=== PATIENT | female | born 1935 | race Two or more races ===

== ENCOUNTER 2022-08-20 12:34 | Emergency (ER) | payer OTHER ==
[~2022-08-20] VITALS: Ht 154.9 cm; Wt 49.4 kg
[2022-08-20 13:23] VITALS: BP 119/62
--- NOTE | 2022-08-20 13:25 | NUR ---
c/o right knee pain s/p slip and fall. pt states " i just need my wound to be cleaned up".
--- NOTE | 2022-08-20 13:30 | NUR ---
WOUHND CARE DONE BY EMT AT BED SIDE , APPLIED DRESSING AND ANTIBOITIC OINTMENT ASSEPTICALLY .
[2022-08-20] MEDS ORDERED: BACI/NEOM/POLY B OINT PKT 1 UDPKT PACKET TP ONE (14:00)
[2022-08-20] MEDS ORDERED: BACI/NEOM/POLY B OINT PKT 1 UDPKT PACKET ONE (14:02)
--- NOTE | 2022-08-20 14:16 | NUR ---
Patient discharged to home in stable condition. Written and verbal after care instructions given. Patient verbalizes understanding of instruction.
== END 2022-08-20 14:17 | disposition home or self-care (01) ==
LOC: ER 12:46
DX: S81.011A Laceration without foreign body, right knee, initial encounter (principal); Z60.2 Problems related to living alone; W01.0XXA Fall on same level from slipping, tripping and stumbling without subsequent striking against object, initial encounter; Y93.01 Activity, walking, marching and hiking; Y92.89 Other specified places as the place of occurrence of the external cause; Y99.8 Other external cause status
CPT/HCPCS: 99282; 12002; A6403 ×2

== ENCOUNTER 2023-04-18 07:34 | Emergency (ER) | payer OTHER ==
[~2023-04-18] VITALS: Ht 139.7 cm; Wt 35.4 kg
[2023-04-18] MEDS ORDERED: ALBUTEROL FS 2.5 MG/3 ML VIAL.NEB NEB ONE (08:00)
[2023-04-18] MEDS ORDERED: methylPREDNISolone SOD SUCC 125 MG/2ML VIAL IV ONE (08:00)
[2023-04-18] MEDS ORDERED: IPRATROPIUM NEB FS 0.5 MG/2.5 ML AMPUL.NEB NEB ONE (08:00)
[2023-04-18] MEDS ORDERED: methylPREDNISolone SOD SUCC 125 MG/2ML VIAL ONE (08:08)
[2023-04-18] MEDS ORDERED: ALBUTEROL FS 2.5 MG/3 ML VIAL.NEB ONE (08:23)
[2023-04-18] MEDS ORDERED: IPRATROPIUM NEB FS 0.5 MG/2.5 ML AMPUL.NEB ONE (08:23)
[2023-04-18 08:27] LABS: BASOPHILS # (AUTO) 0.1 K/uL (0.0-0.2); BASOPHILS % (AUTO) 0.8 % (0.0-2.0); EOSINOPHILS % (AUTO) 0.1 % (0.0-6.0); HEMATOCRIT 31 % (33-45); HEMOGLOBIN 10.3 g/dL (11.5-14.8); LYMPHOCYTES # (AUTO) 0.7 K/uL (0.8-4.8); MEAN CORPUSCULAR HEMOGLOBIN 32 PG (26.0-33.0); MEAN CORPUSCULAR HGB CONC 33 g/dl (31.0-36.0); MEAN CORPUSCULAR VOLUME 97 fL (82-100); MONOCYTES # (AUTO) 0.5 K/uL (0.1-1.30); MONOCYTES % (AUTO) 6.5 % (2.0-12.0); NEUTROPHILS # (AUTO) 6.8 K/uL (1.8-8.9); NEUTROPHILS % (AUTO) 83.6 % (43.0-81.0); PLATELET COUNT (AUTO) 218 K/uL (150-450); RED BLOOD CELL COUNT(AUTO) 3.18 MIL/uL (4.0-5.2); RED CELL DISTRIBUTION WIDTH 15.9 % (11.5-15.0); WHITE BLOOD COUNT (AUTO) 8.1 K/uL (4.3-11.0)
[2023-04-18 08:28] VITALS: O2SAT 96
[2023-04-18 08:44] VITALS: O2SAT 100
[2023-04-18 08:46] LABS: INR 0.99 (0.91-1.10); PROTHROMBIN TIME 10.5 SECS (9.2-11.1)
[2023-04-18 08:47] LABS: PARTIAL THROMBOPLASTIN TIME 32.5 SEC (24.3-34.3)
[2023-04-18] MEDS ORDERED: ONDANSETRON HCL/PF 4 MG/2 ML VIAL ONE (09:10)
[2023-04-18] MEDS ORDERED: MORPHINE SULFATE INJ 4 MG/ML DISP.SYRIN ONE (09:11)
[2023-04-18 09:29] LABS: CALCIUM, SERUM 9.2 mg/dL (8.5-10.1); CARBON DIOXIDE 25 mmol/L (21-32); CHLORIDE 100 mmol/L (98-107); GLUCOSE 111 mg/dL (74-106); SODIUM SERUM 136 mmol/L (136-145); UREA NITROGEN, BLOOD 23 mg/dL (7-18)
[2023-04-18] MEDS ORDERED: MORPHINE SULFATE INJ 2 MG/ML DISP.SYRIN IV ONE (09:30)
[2023-04-18] MEDS ORDERED: ONDANSETRON HCL/PF - ER 4 MG/2 ML VIAL IV ONE (09:30)
[2023-04-18 09:44] LABS: ALANINE AMINOTRANSFERASE 16 U/L (12-78); ALBUMIN 3.7 g/dL (3.4-5.0); ALKALINE PHOSPHATASE 99 U/L (46-116); ASPARTATE AMINOTRANSFERASE 26 U/L (15-37); BILIRUBIN,DIRECT 0.1 mg/dL (0.0-0.2); BILIRUBIN,TOTAL 0.5 mg/dL (0.2-1.0); NT-PRO BNP 17822 pg/mL (0-125); TOTAL PROTEIN, SERUM 7.4 g/dL (6.4-8.2)
[2023-04-18] MEDS ORDERED: POTASSIUM CHLORIDE 20 MEQ TAB.PRT.SR PO ONE ×2 (09:56→10:00)
[2023-04-18] MEDS ORDERED: FUROSEMIDE 40 MG TABLET ONE (10:57)
[2023-04-18] MEDS ORDERED: FUROSEMIDE 40 MG TABLET PO ONE (11:00)
[2023-04-18 11:22] VITALS: BP 138/98; TEMP 98; O2SAT 91
== END 2023-04-18 11:23 | disposition home or self-care (01) ==
LOC: ER 07:36
DX: J45.901 Unspecified asthma with (acute) exacerbation (principal); I50.9 Heart failure, unspecified; Z20.822 Contact with and (suspected) exposure to COVID-19; Z60.2 Problems related to living alone
CPT/HCPCS: 99285; 96374; 71045; 96375; 87426; 93005; 87804 ×2; 85025; 80048; 80076; 36415; 84484; 85730; 83880; 94640; J2270; J2930; J2405 ×2; C9803

== ENCOUNTER 2023-04-20 12:37 | Inpatient (IN) | payer OTHER ==
[~2023-04-20] VITALS: Ht 132.1 cm; Wt 36.7 kg
[2023-04-20 13:10] LABS: BASOPHILS # (AUTO) 0.1 K/uL (0.0-0.2); BASOPHILS % (AUTO) 0.9 % (0.0-2.0); EOSINOPHILS % (AUTO) 0.3 % (0.0-6.0); HEMATOCRIT 28 % (33-45); HEMOGLOBIN 9.4 g/dL (11.5-14.8); LYMPHOCYTES # (AUTO) 1.1 K/uL (0.8-4.8); LYMPHOCYTES % (AUTO) 13.6 % (20.0-44.0); MEAN CORPUSCULAR HEMOGLOBIN 33 PG (26.0-33.0); MEAN CORPUSCULAR HGB CONC 34 g/dl (31.0-36.0); MEAN CORPUSCULAR VOLUME 95 fL (82-100); MONOCYTES # (AUTO) 0.8 K/uL (0.1-1.30); MONOCYTES % (AUTO) 9.9 % (2.0-12.0); NEUTROPHILS # (AUTO) 6.3 K/uL (1.8-8.9); NEUTROPHILS % (AUTO) 75.3 % (43.0-81.0); PLATELET COUNT (AUTO) 268 K/uL (150-450); RED BLOOD CELL COUNT(AUTO) 2.89 MIL/uL (4.0-5.2); RED CELL DISTRIBUTION WIDTH 15.7 % (11.5-15.0); WHITE BLOOD COUNT (AUTO) 8.3 K/uL (4.3-11.0)
[2023-04-20 13:32] LABS: CALCIUM, SERUM 9.2 mg/dL (8.5-10.1); CREATININE 0.9 mg/dL (0.6-1.3); POTASSIUM 4.2 mmol/L (3.5-5.1)
[2023-04-20 13:44] LABS: ALBUMIN 3.6 g/dL (3.4-5.0); BILIRUBIN,DIRECT 0.1 mg/dL (0.0-0.2); BILIRUBIN,TOTAL 0.4 mg/dL (0.2-1.0); TOTAL PROTEIN, SERUM 7.1 g/dL (6.4-8.2)
[2023-04-20] MEDS ORDERED: IRON PO (13:46)
[2023-04-20] MEDS ORDERED: CYAN500T64 PO (13:46)
[2023-04-20] MEDS ORDERED: MESA1.2T PO (13:46)
[2023-04-20] MEDS ORDERED: MAGN500C16 PO (13:46)
[2023-04-20] MEDS ORDERED: OMEP40CA21 PO (13:46)
[2023-04-20] MEDS ORDERED: ASCO-340 PO (13:46)
[2023-04-20] MEDS ORDERED: CHOL378P PO (13:46)
[2023-04-20] MEDS ORDERED: FURO-144 PO (13:46)
[2023-04-20] MEDS ORDERED: LYSI500T11 PO (13:46)
[2023-04-20] MEDS ORDERED: ASPI-1169 PO (13:46)
[2023-04-20] MEDS ORDERED: CALC-953 PO (13:46)
[2023-04-20] MEDS ORDERED: LACT1CAP57 PO (13:46)
[2023-04-20] MEDS ORDERED: SACU1TAB PO (13:46)
[2023-04-20] MEDS ORDERED: METO25TA4 PO (13:46)
[2023-04-20] MEDS ORDERED: BUDE10.2 IH (13:46)
[2023-04-20] MEDS ORDERED: MONT10TA22 PO (13:46)
[2023-04-20] MEDS ORDERED: FUROSEMIDE 40 MG/4 ML VIAL IV ONE (14:00)
[2023-04-20] MEDS ORDERED: ASPIRIN 325 MG TABLET PO ONE (14:00)
[2023-04-20] MEDS ORDERED: NITROGLYCERIN PACKET 1 GM PACKET TD ONE (14:00)
[2023-04-20] MEDS ORDERED: FUROSEMIDE 40 MG/4 ML VIAL ONE (14:10)
[2023-04-20] MEDS ORDERED: NITROGLYCERIN PACKET 1 GM PACKET ONE (14:10)
[2023-04-20] MEDS ORDERED: ASPIRIN 325 MG TABLET ONE (14:10)
[2023-04-20 18:30] VITALS: BP 153/100; TEMP 98.6
[2023-04-20] MEDS ORDERED: ONDANSETRON HCL/PF 4 MG/2 ML VIAL IVP PRN (19:00)
[2023-04-20] MEDS ORDERED: Z GUARD REMEDY 4 OZ OINT TP PRN (19:00)
[2023-04-20] MEDS ORDERED: MAGNESIUM HYDROXIDE 30 ML UDC PO PRN (19:00)
[2023-04-20] MEDS ORDERED: ACETAMINOPHEN 325 MG TABLET PO PRN (19:00)
[2023-04-20] MEDS ORDERED: ZOLPIDEM TARTRATE 5 MG TABLET PO PRN (19:00)
[2023-04-20] MEDS ORDERED: MAG HYDROX/AL HYDROX/SIMETH 30 ML UDC PO PRN (19:00)
[2023-04-20 20:00] VITALS: BP 132/100; TEMP 98.2; O2SAT 96
[2023-04-20] MEDS: ENOXAPARIN SODIUM 30 MG/0.3 ML DISP.SYRIN SQ SCH (20:25)
[2023-04-20] MEDS: HYDROCODONE/APAP 5/325MG TABLET PO PRN (23:11)
[2023-04-21] VITALS (7 sets, daily range): BP systolic 108–141; BP diastolic 68–92; TEMP 96.5–98.6; O2SAT 95–97
[2023-04-21] MEDS: LACTOBACILLUS RHAMNOSUS GG 1 EACH CAP.SPRINK PO SCH ×2 (07:30→21:40)
[2023-04-21] MEDS ORDERED: Medication Not On Formulary EA (Omeprazole 40 MG) PO SCH (07:30)
[2023-04-21] MEDS: METOPROLOL SUCCINATE 25 MG TAB.SR.24H PO SCH ×2 (07:30→18:01)
[2023-04-21] MEDS ORDERED: LYSINE 500 MG PO SCH (07:30)
[2023-04-21 07:44] LABS: BASOPHILS # (AUTO) 0.1 K/uL (0.0-0.2); EOSINOPHILS # (AUTO) 0.1 K/uL (0.0-0.7); EOSINOPHILS % (AUTO) 0.7 % (0.0-6.0); HEMATOCRIT 33 % (33-45); HEMOGLOBIN 11.1 g/dL (11.5-14.8); LYMPHOCYTES # (AUTO) 2.4 K/uL (0.8-4.8); LYMPHOCYTES % (AUTO) 28.7 % (20.0-44.0); MEAN CORPUSCULAR HEMOGLOBIN 33 PG (26.0-33.0); MEAN CORPUSCULAR HGB CONC 34 g/dl (31.0-36.0); MEAN CORPUSCULAR VOLUME 99 fL (82-100); MONOCYTES % (AUTO) 11.7 % (2.0-12.0); NEUTROPHILS # (AUTO) 4.8 K/uL (1.8-8.9); NEUTROPHILS % (AUTO) 57.9 % (43.0-81.0); PLATELET COUNT (AUTO) 295 K/uL (150-450); RED BLOOD CELL COUNT(AUTO) 3.32 MIL/uL (4.0-5.2); RED CELL DISTRIBUTION WIDTH 15.5 % (11.5-15.0); WHITE BLOOD COUNT (AUTO) 8.3 K/uL (4.3-11.0)
[2023-04-21 07:47] LABS: CALCIUM, SERUM 9.2 mg/dL (8.5-10.1); CREATININE 0.9 mg/dL (0.6-1.3); MAGNESIUM 2.2 mg/dL (1.8-2.4); PHOSPHORUS 4.1 mg/dL (2.5-4.9); POTASSIUM 3.4 mmol/L (3.5-5.1)
[2023-04-21] MEDS: FUROSEMIDE 100 MG/10 ML VIAL IV SCH ×4 (08:20→15:30)
[2023-04-21] MEDS: PANTOPRAZOLE 40 MG VIAL IV SCH ×2 (08:20→09:00)
[2023-04-21] MEDS: CHOLESTYRAMINE/ASPARTAME 4 G/PKT PACKET PO SCH (08:21)
[2023-04-21] MEDS: ASPIRIN 81 MG TAB.CHEW PO SCH (08:21)
[2023-04-21] MEDS: POTASSIUM CHLORIDE 20 MEQ TAB.PRT.SR PO SCH ×3 (08:21→10:54)
[2023-04-21] MEDS: FLUTICASONE/VILANTEROL 1 EACH BLST.W.DEV IH SCH (08:55)
[2023-04-21] MEDS: SACUBITRIL/VALSARTAN 1 EACH TABLET PO SCH ×2 (08:57→17:58)
[2023-04-21] MEDS ORDERED: FUROSEMIDE 20 MG/2 ML VIAL IV SCH ×2 (09:00)
[2023-04-21] MEDS ORDERED: FUROSEMIDE 100 MG/10 ML VIAL IV ONE (18:00)
[2023-04-21] MEDS ORDERED: MAGNESIUM OXIDE 400 MG TABLET PO SCH (18:00)
[2023-04-21] MEDS: ENSURE ENLIVE 237 ML LIQUID (VANILLA) PO SCH (18:03)
[2023-04-21] MEDS: ENOXAPARIN SODIUM 30 MG/0.3 ML DISP.SYRIN SQ SCH (21:00)
[2023-04-21] MEDS: MESALAMINE 400 MG CAP PO SCH (21:40)
[2023-04-21] MEDS: HYDROCODONE/APAP 5/325MG TABLET PO PRN (21:43)
[2023-04-22] VITALS: BP 114/84; TEMP 98.6; O2SAT 95
[2023-04-22 04:00] VITALS: BP 129/77; TEMP 98.8; O2SAT 96
[2023-04-22 06:17] LABS: BASOPHILS # (AUTO) 0.1 K/uL (0.0-0.2); BASOPHILS % (AUTO) 1.1 % (0.0-2.0); EOSINOPHILS % (AUTO) 0.5 % (0.0-6.0); HEMATOCRIT 36 % (33-45); HEMOGLOBIN 12.1 g/dL (11.5-14.8); LYMPHOCYTES # (AUTO) 1.6 K/uL (0.8-4.8); LYMPHOCYTES % (AUTO) 25.2 % (20.0-44.0); MEAN CORPUSCULAR HEMOGLOBIN 32 PG (26.0-33.0); MEAN CORPUSCULAR HGB CONC 34 g/dl (31.0-36.0); MEAN CORPUSCULAR VOLUME 96 fL (82-100); MONOCYTES # (AUTO) 0.7 K/uL (0.1-1.30); MONOCYTES % (AUTO) 11.3 % (2.0-12.0); NEUTROPHILS % (AUTO) 61.9 % (43.0-81.0); PLATELET COUNT (AUTO) 285 K/uL (150-450); RED BLOOD CELL COUNT(AUTO) 3.75 MIL/uL (4.0-5.2); WHITE BLOOD COUNT (AUTO) 6.5 K/uL (4.3-11.0)
[2023-04-22 06:56] LABS: ALANINE AMINOTRANSFERASE 36 U/L (12-78); ALBUMIN 3.7 g/dL (3.4-5.0); ALKALINE PHOSPHATASE 108 U/L (46-116); ASPARTATE AMINOTRANSFERASE 26 U/L (15-37); BILIRUBIN,TOTAL 0.5 mg/dL (0.2-1.0); CALCIUM, SERUM 9.4 mg/dL (8.5-10.1); CARBON DIOXIDE 32 mmol/L (21-32); CHLORIDE 96 mmol/L (98-107); GLUCOSE 107 mg/dL (74-106); PHOSPHORUS 4.5 mg/dL (2.5-4.9); POTASSIUM 3.3 mmol/L (3.5-5.1); SODIUM SERUM 136 mmol/L (136-145); TOTAL PROTEIN, SERUM 7.8 g/dL (6.4-8.2); UREA NITROGEN, BLOOD 30 mg/dL (7-18)
[2023-04-22] MEDS: CHOLESTYRAMINE/ASPARTAME 4 G/PKT PACKET PO SCH (07:28)
[2023-04-22] MEDS: SACUBITRIL/VALSARTAN 1 EACH TABLET PO SCH (08:41)
[2023-04-22] MEDS: ASPIRIN 81 MG TAB.CHEW PO SCH (08:41)
[2023-04-22] MEDS: ENSURE ENLIVE 237 ML LIQUID (VANILLA) PO SCH (08:42)
[2023-04-22] MEDS: MESALAMINE 400 MG CAP PO SCH (08:48)
[2023-04-22] MEDS: FLUTICASONE/VILANTEROL 1 EACH BLST.W.DEV IH SCH (08:49)
[2023-04-22] MEDS ORDERED: FAMOTIDINE (20 MG) 20 MG TABLET PO SCH (09:00)
[2023-04-22] MEDS: POTASSIUM CHLORIDE 20 MEQ TAB.PRT.SR PO SCH ×2 (09:55→10:00)
== END 2023-04-22 13:30 | disposition home or self-care (01) | DRG 291 ==
LOC: ER 12:37 → TELE 17:13
PROVIDERS: ADMIT Nurse Practitioner Acute Care; ATTEND Nurse Practitioner Acute Care
DX: I11.0 Hypertensive heart disease with heart failure (principal); I50.23 Acute on chronic systolic (congestive) heart failure; E87.1 Hypo-osmolality and hyponatremia; I42.9 Cardiomyopathy, unspecified; I70.0 Atherosclerosis of aorta; J45.909 Unspecified asthma, uncomplicated; K58.9 Irritable bowel syndrome, unspecified; Z96.653 Presence of artificial knee joint, bilateral; D64.9 Anemia, unspecified; Z95.810 Presence of automatic (implantable) cardiac defibrillator; Z79.82 Long term (current) use of aspirin; M54.30 Sciatica, unspecified side; Z96.641 Presence of right artificial hip joint; J84.89 Other specified interstitial pulmonary diseases; Z79.51 Long term (current) use of inhaled steroids; I34.0 Nonrheumatic mitral (valve) insufficiency
CPT/HCPCS: 36415; 71045-TC; 80048-TC; 80053-TC; 80061-TC; 80076-TC; 83735-TC; 83880; 84100-TC; 84484-TC; 85025-TC; 93307-TC; C9113; G0378; J1650; J1940